=== PATIENT | female | born 1980 | race Two or more races ===

== ENCOUNTER → 2019-02-22 | Outpatient (CLI) | payer OTHER ==
[~2019-02-22] MED LIST: CARAFATE1 G PO; NEXIUM 24HR20 MG PO
== END | disposition home or self-care (01) ==
LOC: SONOGRAMA 11:13 → MAMO-SONO 11:15
DX: N93.8 Other specified abnormal uterine and vaginal bleeding (principal)

== ENCOUNTER 2019-09-14 08:46 | Day surgery (SDC) | payer OTHER ==
[~2019-09-14 08:46] MED LIST changes: +SYNTHROID88 MCG PO
== END 2019-09-14 20:30 | disposition home or self-care (01) ==
LOC: CIR.AMB 08:46
PROVIDERS: ATTEND Plastic Surgery
DX: E65 Localized adiposity (principal); N62 Hypertrophy of breast; M62.08 Separation of muscle (nontraumatic), other site